=== PATIENT | female | born 2000 | race American Indian/Alaskan Native ===

== ENCOUNTER 2021-01-09 02:04 | Emergency (ER) | payer BC, OTHER ==
[~2021-01-09] VITALS: Ht 157.5 cm; Wt 63.5 kg
[2021-01-09] MEDS ORDERED: IBU600 MG PO (02:16)
== END 2021-01-09 02:26 | disposition home or self-care (01) ==
LOC: ER 02:04
DX: M54.42 Lumbago with sciatica, left side (principal)
CPT/HCPCS: 99283; A9270

== ENCOUNTER → 2024-11-05 | Outpatient (CLI) | payer OTHER ==
[~2024-11-05] MED LIST: IBU600 MG PO
[2024-11-10 16:26] LABS: CALPROTECTIN,FECAL 9 ug/g (<=49)
== END ==
LOC: LAB SHORT 11:52 → LAB 11:52
PROVIDERS: Physician Assistant Medical
DX: D64.9 Anemia, unspecified (principal)
CPT/HCPCS: 83993

== ENCOUNTER 2025-01-19 10:32 | Day surgery (SDC) | payer OTHER ==
[~2025-01-19] VITALS: Ht 157.5 cm; Wt 69.6 kg
[~2025-01-19 10:32] MED LIST changes: +Glycopyrrolate 0.2 MG/ML 1MLVIAL ONE; +Lactated Ringer's 1,000 ML IV ONE; +Lidocaine 2% 5 ML SDV ONE; +Lidocaine HCl/Pf 1% 5 ML VIAL ONE; +Ondansetron HCl 2 MG / ML 2ML Vial ONE; +ePHEDrine Sulfate 50 MG/ML 1ML Injection ONE; +propofoL 50 ML IV ONE
[2025-01-19] MEDS ORDERED: Lactated Ringer's 1,000 ML IV ONE (12:03)
[2025-01-19] MEDS ORDERED: Midazolam HCL 1 MG/ML 5MLVIAL ONE (12:19)
[2025-01-19 13:49] VITALS: BP 100/59
== END 2025-01-19 13:30 | disposition home or self-care (01) ==
LOC: ORSCSDS 10:32
PROVIDERS: Internal Medicine Gastroenterology
PROC: 0DBH8ZX Excision of Cecum, Via Natural or Artificial Opening Endoscopic, Diagnostic (ICD-10-PCS; principal; 2025-01-19 12:00)
PROC: 0DB78ZX Excision of Stomach, Pylorus, Via Natural or Artificial Opening Endoscopic, Diagnostic (ICD-10-PCS; principal; 2025-01-19 12:00)
DX: D50.9 Iron deficiency anemia, unspecified (principal); K92.1 Melena; D12.0 Benign neoplasm of cecum; R10.84 Generalized abdominal pain; Z80.0 Family history of malignant neoplasm of digestive organs
CPT/HCPCS: 88305; 88342; J2003; J2250; J2405; J2704; J7120